=== PATIENT | male | born 1975 | race African-American/Black ===

== ENCOUNTER 2019-01-21 19:45 | Emergency (ER) | payer SELFPAY ==
[~2019-01-21] VITALS: Ht 185.4 cm; Wt 99.8 kg
[~2019-01-21 19:45] MED LIST: NKM; VISTARIL50 MG ORAL; ZOFRAN ODT4 MG ORAL
--- NOTE | 2019-01-21 19:51 | NUR ---
ED Nurse Note: pt brought in by ambulance from the street. per hub lead pt was shaking non stop. pt verbalized he drinks every day and he stopped drinkign for several hours and the shakes started to happen. pt is alert x4. VSS
[2019-01-21 19:52] VITALS: BP 132/84
[2019-01-21] MEDS ORDERED: LORazepam Inj 2mg/ml 1ml IV ONE (20:15)
--- NOTE | 2019-01-21 21:00 | NUR ---
ED Nurse Note: blood sample sent down to lab. still need urine sample. pt verbalized he will call staff when he is ready to urinate.
--- NOTE | 2019-01-21 21:59 | Emergency Room Report ---
History of Present Illness General Chief Complaint: Alcohol Intoxication Source: Patient (Artemio Moralez) Present Illness HPI 43-year-old male with no significant past medical history and was not a good historian due to withdrawal from alcohol, brought in by paramedics due to tremors secondary to alcohol withdrawal. Patient does admit to drinking every day and reports that he has not had any alcohol in the past several hours. Denies headache and dizziness however complains of chest pain no shortness of breath. Patient is actively having tremors, drooling, however speaks in full sentences. No signs of trauma noted. Denies abdominal pain, nausea vomiting. Patient is not a good historian however stable. (Artemio Moralez) Allergies: Coded Allergies: No Known Allergies (Unverified , 09/20/15) Patient History Past Medical History: see triage record Past Surgical History: unable to obtain Pertinent Family History: unable to obtain Social History: Reports: alcohol use Immunizations: UTD Reviewed Nursing Documentation: PMH: Agreed; PSxH: Agreed (Artemio Moralez) Nursing Documentation-PMH Past Medical History Deferred: Pt Cognitively Impaired Past Medical History: Deferred (Artemio Moralez) Review of Systems All Other Systems: negative except mentioned in HPI (Artemio Moralez) Physical Exam Vital Signs Date Time Temp Pulse Resp B/P (MAP) Pulse Ox O2 Delivery O2 Flow Rate FiO2 01/21/19 19:46 99.1 98 22 138/84 (102) 100 Room Air 01/21/19 19:52 92 Sp02 EP Interpretation: abnormal General Appearance: alert, mild distress Head: normocephalic, atraumatic Eyes: bilateral eye normal inspection, bilateral eye PERRL ENT: hearing grossly normal, normal pharynx Neck: full range of motion, supple, supple/symm/no masses Respiratory: chest non-tender, lungs clear, normal breath sounds, no rhonchi, speaking full sentences Cardiovascular #1: regular rate, rhythm, no edema, no murmur, normal capillary refill Cardiovascular #2: 2+ carotid (R), 2+ carotid (L), 2+ radial (R), 2+ radial (L) , 2+ dorsalis pedis (R), 2+ dorsalis pedis (L) Gastrointestinal: normal bowel sounds, non tender, soft, non-distended, no guarding, no rebound Genitourinary: no CVA tenderness Musculoskeletal: back normal, gait/station normal, normal range of motion, non- tender, no calf tenderness Neurologic: alert, oriented x3, responsive, motor strength/tone normal, sensory intact, speech normal Psychiatric: anxious Skin: no rash Lymphatic: no adenopathy (Artemio Moralez) Medical Decision Making PA Attestation All diagnoses and treatment plans were reviewed and discussed with my supervising physician Dr. Montero [facility] Diagnostic Impression: Primary Impression: Alcohol withdrawal Qualified Codes: F10.230 - Alcohol dependence with withdrawal, uncomplicated Additional Impression: Acute alcohol intoxication Qualified Codes: F10.920 - Alcohol use, unspecified with intoxication, uncomplicated ER Course 43-year-old male with no significant past medical history and was not a good historian due to withdrawal from alcohol, brought in by paramedics due to tremors secondary to alcohol withdrawal. Patient does admit to drinking every day and reports that he has not had any alcohol in the past several hours. Denies headache and dizziness however complains of chest pain no shortness of breath. Patient is actively having tremors, drooling, however speaks in full sentences. No signs of trauma noted. Denies abdominal pain, nausea vomiting. Patient is not a good historian however stable. Ddx considered but are not limited to: generalized anxiety disorder, panic attack, depression with psychotic feature, bipolar disorder, drug overdose, alcohol intoxication, alcohol withdrawal Vital signs: are WNL, pt. is afebrile H&PE are most consistent with: Alcohol withdrawal ORDERS: CBC, CMP, UA, tox screen, EtOH serum, troponin, chest x-ray ED INTERVENTIONS: NS bolus, Ativan, Zofran, Pepcid I signed the patient to Dr. Chapman at 22:33, pt stable (Artemio Moralez) ER Course This patient presents with alcohol abuse and questionable alcohol withdrawal. He was signed out to me. He was given Ativan here. Alcohol level is over 200. He is sleeping comfortably. No evidence of any severe electrolyte abnormality. Repeat chemistries unremarkable. Will discharge home with Librium. (Moises Chapman MD) EKG Diagnostic Results Rate: tachycardiac ST Segments: no acute changes Other Impression No acute ST changes (Artemio Moralez) Chest X-Ray Diagnostic Results Chest X-Ray Diagnostic Results : Chest X-Ray Ordered: Yes # of Views/Limited/Complete: 1 View Indication: Chest Pain EP Interpretation: Yes PA Xray: Interpretation reviewed, by supervising MD, and agrees with findings. Interpretation: no consolidation, no effusion, no pneumothorax Impression: No acute disease Electronically Signed by: Artemio Fay PA-C (Artemio Moralez) Last Vital Signs Date Time Temp Pulse Resp B/P (MAP) Pulse Ox O2 Delivery O2 Flow Rate FiO2 01/21/19 19:52 98.0 112 19 132/84 92 Room Air 01/21/19 19:52 92 (Artemio Moralez) Status: improved (Moises Chapman MD) Disposition: HOME, SELF-CARE Condition: Stable Scripts Chlordiazepoxide (Chlordiazepoxide HCl) 25 Mg Capsule 25 MG ORAL THREE TIMES A DAY, #15 CAP 0 Refills Prov: Moises Chapman MD 01/22/19 Patient Instructions: Alcohol Use Disorder Additional Instructions: Follow-up with rehab in 7 days. Follow-up with your doctor in 7 days. Return if symptoms worsen. Artemio Moralez Jan 21, 2019 21:59 Moises Chapman MD Jan 22, 2019 00:02
[2019-01-21 22:06] LABS: HEMATOCRIT 43.3 % (42.0-52.0); HEMOGLOBIN 14.5 G/DL (14.2-18.0); MEAN CORPUSCULAR VOLUME 97 FL (80-99); PLATELET COUNT 69 K/UL (150-450); RED BLOOD COUNT 4.47 M/UL (4.70-6.10); RED CELL DISTRIBUTION WIDTH 12.3 % (11.6-14.8); WHITE BLOOD COUNT 5.1 K/UL (4.8-10.8)
--- NOTE | 2019-01-21 22:06 | NUR ---
ED Nurse Note: urine sample sent down to lab
[2019-01-21 22:16] LABS: ALANINE AMINOTRANSFERASE 117 U/L (12-78); ALBUMIN 2.6 G/DL (3.4-5.0); ALBUMIN/GLOBULIN RATIO 0.8 (1.0-2.7); ALKALINE PHOSPHATASE 141 U/L (46-116); ANION GAP 13 mmol/L (5-15); ASPARTATE AMINO TRANSFERASE 240 U/L (15-37); BILIRUBIN,TOTAL 0.8 MG/DL (0.2-1.0); BLOOD UREA NITROGEN 6 mg/dL (7-18); CALCIUM 6.1 MG/DL (8.5-10.1); CARBON DIOXIDE 21 MMOL/L (21-32); CHLORIDE 114 MMOL/L (98-107); CREATININE 0.7 MG/DL (0.55-1.30); SODIUM 150 MMOL/L (136-145)
[2019-01-21 22:17] LABS: APPEARANCE,URINE CLEAR; BILIRUBIN, URINE NEGATIVE (NEGATIVE); GLUCOSE, URINE (UA) NEGATIVE (NEGATIVE); KETONES,URINE NEGATIVE (NEGATIVE); LEUKOCYTE ESTERASE ,URINE 1+ (NEGATIVE); NITRITE,URINE NEGATIVE (NEGATIVE); PH,URINE 7 (4.5-8.0); PROTEIN,URINE 2+ (NEGATIVE); UROBILINOGEN,URINE 1 MG/DL (0.0-1.0)
[2019-01-21 22:20] LABS: COLOR,URINE YELLOW
[2019-01-21 22:21] LABS: POTASSIUM 2.7 MMOL/L (3.5-5.1)
--- NOTE | 2019-01-21 22:38 | NUR ---
Note briana in EDM - 01/21/19 at 2238 by VAL ED Nurse Note: pt unable to proide urine still. ERMD aware.
--- NOTE | 2019-01-21 23:42 | NUR ---
ED Nurse Note: repeat chemistry lab sent to lab
[2019-01-21 23:54] LABS: ANION GAP 9 mmol/L (5-15); BLOOD UREA NITROGEN 7 mg/dL (7-18); CALCIUM 8.1 MG/DL (8.5-10.1); CARBON DIOXIDE 29 MMOL/L (21-32); CHLORIDE 108 MMOL/L (98-107); POTASSIUM 4.4 MMOL/L (3.5-5.1); SODIUM 146 MMOL/L (136-145)
[2019-01-22] MEDS ORDERED: LIBRIUM25 MG ORAL (00:01)
[2019-01-22 00:09] VITALS: BP 142/86
--- NOTE | 2019-01-22 00:10 | NUR ---
ER DISCHARGE NOTE: Patient is cleared to be discharged per ERMD, pt is aox4, on room air, with stable vital signs. pt was given dc and prescription instructions, pt was able to verbalize understanding, pt id band and iv site removed without complications. pt is able to ambulate with steady gait. pt took all belongings.
--- NOTE | 2019-01-22 12:23 | Diagnostic Imaging Report ---
Indication: Pain, cough, vomiting Technique: One view of the chest Comparison: none Findings: Habitus limits evaluation. The lungs and pleural spaces are clear. The heart is upper limits normal in size. No significant interim change Impression: No acute process
== END 2019-01-22 00:10 | disposition home or self-care (01) ==
LOC: EDBD 19:45 → EMR 20:08
DX: F10.239 Alcohol dependence with withdrawal, unspecified (principal); F10.229 Alcohol dependence with intoxication, unspecified; R07.9 Chest pain, unspecified
CPT/HCPCS: 36415; 71045; 80048; 80053; 80307; 81001; 84484; 85007; 85025; 93005; 96361; 96374; 96375; 96376; 99284; G0480; J2405; S0028; J7030